=== PATIENT | female | born 1965 | race Caucasian/White ===

== ENCOUNTER 2016-03-19 09:31 | Emergency (ER) | payer OTHER ==
[~2016-03-19] VITALS: Ht 175.3 cm; Wt 74.5 kg
[2016-03-19 10:28] LABS: BASOPHIL COUNT 0.1 K/uL (0-0.1); EOSINOPHIL (%) 1.9 % (0-5); EOSINOPHIL COUNT 0.2 K/uL (0-0.3); HEMATOCRIT 38.8 % (36.0-46.0); IMMATURE GRANULOCYTE (%) 0.4 % (0.0-0.7); IMMATURE GRANULOCYTE COUNT 0.4 K/uL; LYMPHOCYTE COUNT 1.3 K/uL (1.0-2.8); MCH 30.5 PG (29.0-34.0); MCV 95.3 FL (83-99); MEAN PLAT.VOLUME 11.5 uM^3 (9.5-12.4); MONOCYTE (%) 7.9 % (3-12); MONOCYTE COUNT 0.8 K/uL (0-0.8); NEUTROPHIL (%) 77.1 % (45-76); NEUTROPHIL COUNT 8.1 K/uL (1.8-6.4); PLATELET COUNT 235 K/uL (156-360); RBC DIS.WIDTH-CV 12.7 % (11.8-14.6); RED BLOOD COUNT 4.07 M/uL (3.80-5.20); WHITE BLOOD COUNT 10.5 K/uL (4.1-10.2)
[2016-03-19 10:39] LABS: CHLORIDE 106 mEq/L (99-109); POTASSIUM 4.3 mEq/L (3.7-5.4); SODIUM 141 mEq/L (136-147)
[2016-03-19 10:41] LABS: GLUCOSE 115 mg/dL (70-99)
[2016-03-19 10:43] LABS: ANION GAP 10 MEQ/L (2-14)
[2016-03-19 10:45] LABS: GFR ESTIMATE (CALCULATED) > 59 mL/min/
[2016-03-19 10:46] LABS: UREA NITROGEN (BUN) 15 mg/dL (9-23)
[2016-03-19 10:48] LABS: TROP-I INTERPRETATION NEGATIVE; TROPONIN-I < 0.01 ng/mL (0.0-0.30)
[2016-03-19 15:02] LABS: TROP-I INTERPRETATION NEGATIVE; TROPONIN-I < 0.01 ng/mL (0.0-0.30)
[2016-03-19] MEDS ORDERED: ZITHROMAX250 MG PO (15:07)
[2016-03-19] MEDS ORDERED: NAPROSYN500 MG PO (15:07)
[2016-03-19 16:00] VITALS: BP 122/75
== END 2016-03-19 16:18 | disposition home or self-care (01) ==
LOC: EME → EDBD 09:31 → EME 09:31
PROVIDERS: Physician Assistant Medical
DX: J40 Bronchitis, not specified as acute or chronic (principal); R42 Dizziness and giddiness; R11.0 Nausea
CPT/HCPCS: 71020; 80048; 84484; 85025; 93005; 99281; 99285